=== PATIENT | female | born 1970 | race African-American/Black ===

== ENCOUNTER 2016-10-08 08:48 | Emergency (ER) | payer OTHER ==
[~2016-10-08] VITALS: Ht 152.4 cm; Wt 80.8 kg
[~2016-10-08 08:48] MED LIST: ADVAIR 250/501 DISK IH; ALBUTEROL17 GM IH; ANIMAL CHEWS1 EACH PO; ATENOLOL50 M1 PO; BACLOFEN10 MG PO; BENADRYL ALLERG25 MG PO; BENTYL20 MG PO; CLARITIN,ALAVAR10 MG PO; DIABETA,MICRO1.25 MG PO; DIABETA1.25 MG PO; DILAUDID2 MG PO; FLEXERIL10 MG PO; FLOMAX0.4 MG PO; GLYBURIDE2.5 MG PO; LEVAQUIN750 MG PO; LORTAB 5-325 M1 EACH PO; MACRODANTIN50 M1 PO; METFORMIN HCL1000 MG PO; METFORMIN HCL500 MG PO; METOCLOPRAMIDE10 MG PO; MILK OF MAGN PO; MULTIVITAMIN1 EAC1 PO; MULTIVITAMIN1 EAC2 PO; NORCO 5/3251 TABLET PO; OMEGA III EPA1000 MG PO; OMEPRAZOLE20 MG PO; OXYCODONE HCL5 MG PO; POTASSIUM PO; PREDNISONE10 MG PO; PROMETHAZINE HC25 M1 PO; ROBITUSSIN AC,T10 ML PO; ROXICODONE5 MG PO; SINUS PRESSURE-10 MG PO; TRAMADOL HCL50 MG PO; TYLENOL WITH C1 EACH PO; ULTRAM50 MG PO; VENTOLIN HFA18 GM PO; VITAMIN D1000 INTUN PO; ZOFRAN ODT4 MG PO; ZOFRAN4 MG PO
[2016-10-08 09:33] LABS: HEMATOCRIT 44.6 % (36.0-46.0); MCH 30.6 PG (29.0-34.0); MCHC 33.2 G/DL (30.0-36.0); MCV 92.1 FL (83-99); MEAN PLAT.VOLUME 11.1 uM^3 (9.5-12.4); PLATELET COUNT 187 K/uL (156-360); RBC DIS.WIDTH-CV 11.9 % (11.8-14.6); RBC DIS.WIDTH-SD 40.2 % (39-53); RED BLOOD COUNT 4.84 M/uL (3.80-5.20); WHITE BLOOD COUNT 14.8 K/uL (4.1-10.2)
[2016-10-08 09:46] LABS: CHLORIDE 103 mEq/L (99-109); POTASSIUM 3.9 mEq/L (3.7-5.4); SODIUM 136 mEq/L (136-147)
[2016-10-08 09:48] LABS: GLUCOSE 233 mg/dL (70-99)
[2016-10-08 09:50] LABS: ANION GAP 10 MEQ/L (2-14); TOTAL BILIRUBIN 0.6 mg/dL (0.0-1.0)
[2016-10-08 09:52] LABS: ALKALINE PHOSPHATASE 87 IU/L (3-129); GFR ESTIMATE (CALCULATED) > 59 mL/min/
[2016-10-08 09:53] LABS: UREA NITROGEN (BUN) 10 mg/dL (9-23)
[2016-10-08 09:56] LABS: LIPASE 45 U/L (1.0-51.0)
[2016-10-08 10:02] LABS: QUANTITATIVE HCG < 4.0 MIU/ML
[2016-10-08] MEDS ORDERED: DIABETA2.5 MG PO (10:30)
[2016-10-08 11:14] LABS: ADD MIUA? YES; BILIRUBIN NEGATIVE; BLOOD NEGATIVE; COLOR YELLOW ((YELLOW)); GLUCOSE (STRIP) NEGATIVE; KETONES NEGATIVE; LEUKOCYTES NEGATIVE; NITRITE NEGATIVE; PROTEIN (STRIP) NEGATIVE; UROBILINOGEN 0.2 MG/DL (0.2-1.0)
[2016-10-08 11:24] LABS: BACTERIA RARE /HPF; EPITHELIAL CELLS RARE /HPF; MUCUS TRACE /LPF; RED BLOOD CELLS 0-5 /HPF (0-5); UCUL ADDED? NO; WHITE BLOOD CELLS 0-5 /HPF (0-5)
[2016-10-08] MEDS ORDERED: ZOFRAN ODT4 MG PO (11:30)
[2016-10-08] MEDS ORDERED: BENTYL10 MG PO (11:30)
[2016-10-08 11:39] LABS: SPECIFIC GRAVITY 1.054 (1.000-1.030)
[2016-10-08 11:44] VITALS: BP 137/65
== END 2016-10-08 11:46 | disposition home or self-care (01) ==
LOC: EME 08:48
DX: A08.4 Viral intestinal infection, unspecified (principal); R10.2 Pelvic and perineal pain; J45.909 Unspecified asthma, uncomplicated; E11.9 Type 2 diabetes mellitus without complications; Q61.5 Medullary cystic kidney; K76.0 Fatty (change of) liver, not elsewhere classified; Z87.442 Personal history of urinary calculi; Z79.84 Long term (current) use of oral hypoglycemic drugs; F17.200 Nicotine dependence, unspecified, uncomplicated; Z88.0 Allergy status to penicillin
CPT/HCPCS: 74177; 80053; 81003; 83690; 84702; 85027; 99281; 99285; J1885; J2405; J3010; J7030

== ENCOUNTER 2016-10-20 12:18 | Inpatient (IN) | payer OTHER ==
[~2016-10-20] VITALS: Ht 157.5 cm; Wt 81.9 kg
[~2016-10-20 12:18] MED LIST changes: -ATENOLOL50 M1 PO; +ATENOLOL50 MG PO; +BENTYL10 MG PO; +DIABETA2.5 MG PO
[2016-10-20 13:11] LABS: MCH 30.5 PG (29.0-34.0); MCHC 32.7 G/DL (30.0-36.0); MCV 93.4 FL (83-99); MEAN PLAT.VOLUME 10.5 uM^3 (9.5-12.4); PLATELET COUNT 236 K/uL (156-360); RBC DIS.WIDTH-SD 41.2 % (39-53); RED BLOOD COUNT 4.82 M/uL (3.80-5.20); WHITE BLOOD COUNT 13.5 K/uL (4.1-10.2)
[2016-10-20 13:24] LABS: CHLORIDE 103 mEq/L (99-109); POTASSIUM 4.5 mEq/L (3.7-5.4); SODIUM 138 mEq/L (136-147)
[2016-10-20 13:27] LABS: GLUCOSE 196 mg/dL (70-99)
[2016-10-20 13:28] LABS: ANION GAP 12 MEQ/L (2-14)
[2016-10-20 13:29] LABS: TOTAL BILIRUBIN 0.3 mg/dL (0.0-1.0)
[2016-10-20 13:30] LABS: ALKALINE PHOSPHATASE 78 IU/L (3-129); GFR ESTIMATE (CALCULATED) > 59 mL/min/
[2016-10-20 13:31] LABS: UREA NITROGEN (BUN) 8 mg/dL (9-23)
[2016-10-20 13:39] LABS: QUANTITATIVE HCG < 4.0 MIU/ML
[2016-10-20 13:59] LABS: AMYLASE 117 IU/L (1-118)
[2016-10-20 14:08] LABS: LIPASE 218 U/L (1.0-51.0)
[2016-10-20 15:30] LABS: ADD MIUA? YES; BILIRUBIN NEGATIVE; BLOOD NEGATIVE; COLOR YELLOW ((YELLOW)); GLUCOSE (STRIP) NEGATIVE; KETONES NEGATIVE; LEUKOCYTES SMALL; NITRITE NEGATIVE; PROTEIN (STRIP) 30; SPECIFIC GRAVITY 1.024 (1.000-1.030); UROBILINOGEN 0.2 MG/DL (0.2-1.0)
[2016-10-20 15:40] LABS: BACTERIA RARE /HPF; EPITHELIAL CELLS 1+ /HPF; MUCUS 3+ /LPF; UCUL ADDED? YES; URIC ACID CRYSTALS 2+ /HPF
[2016-10-20 16:50] VITALS: BP 131/67
[2016-10-20] MEDS ORDERED: VITAMIN D2000 UNI1 PO (17:46)
[2016-10-20] MEDS ORDERED: FLAGYL500 MG PO (17:48)
[2016-10-20 19:00] VITALS: BP 119/67
[2016-10-21] VITALS: BP 149/73
[2016-10-21 03:16] LABS: ADD MIUA? YES; BILIRUBIN NEGATIVE; BLOOD NEGATIVE; COLOR YELLOW ((YELLOW)); GLUCOSE (STRIP) NEGATIVE; KETONES 5; LEUKOCYTES SMALL; NITRITE NEGATIVE; PROTEIN (STRIP) NEGATIVE; SPECIFIC GRAVITY 1.043 (1.000-1.030); UROBILINOGEN 0.2 MG/DL (0.2-1.0)
[2016-10-21 03:38] LABS: BACTERIA RARE /HPF; EPITHELIAL CELLS 1+ /HPF; MUCUS TRACE /LPF; RED BLOOD CELLS 0-5 /HPF (0-5); UCUL ADDED? NO; WHITE BLOOD CELLS 0-5 /HPF (0-5)
[2016-10-21 06:01] LABS: HEMATOCRIT 41.4 % (36.0-46.0); MCH 29.9 PG (29.0-34.0); MCHC 31.9 G/DL (30.0-36.0); MCV 93.7 FL (83-99); MEAN PLAT.VOLUME 10.7 uM^3 (9.5-12.4); PLATELET COUNT 188 K/uL (156-360); RBC DIS.WIDTH-CV 11.9 % (11.8-14.6); RBC DIS.WIDTH-SD 41.7 % (39-53); RED BLOOD COUNT 4.42 M/uL (3.80-5.20); WHITE BLOOD COUNT 6.5 K/uL (4.1-10.2)
[2016-10-21 06:23] LABS: ALKALINE PHOSPHATASE 60 IU/L (3-129); ANION GAP 7 MEQ/L (2-14); CHLORIDE 106 MEQ/L (99-109); GFR ESTIMATE (CALCULATED) > 59 mL/min/; GLUCOSE 121 mg/dL (70-99); POTASSIUM 3.9 MEQ/L (3.7-5.4); SAMPLE HEMOLYSIS CHECK 0; SAMPLE ICTERIC CHECK 0; SAMPLE LIPEMIA CHECK 0; SODIUM 138 MEQ/L (136-147); TOTAL BILIRUBIN 0.3 MG/DL (0.0-1.0); UREA NITROGEN (BUN) 6 mg/dL (9-23)
[2016-10-21 06:43] LABS: POINT-OF-CARE METER ID UU13113831
[2016-10-21 08:16] VITALS: BP 133/61
[2016-10-21] MEDS ORDERED: POTASSIUM-9999 MG PO (11:42)
[2016-10-21] MEDS ORDERED: PROMETHAZINE HC25 M1 PO (11:43)
[2016-10-21] MEDS ORDERED: DELTA D3400 UNIT PO (11:44)
[2016-10-21] MEDS ORDERED: ANTI-ITCH28.4 GM TP (11:45)
[2016-10-21] MEDS ORDERED: ZYRTEC10 M3 PO (11:47)
[2016-10-21] MEDS ORDERED: PROAIR HFA8.5 GM IH (11:47)
[2016-10-21 12:43] LABS: POINT-OF-CARE METER ID UU14162513
[2016-10-21 16:29] VITALS: BP 133/66
[2016-10-21 20:20] LABS: POINT-OF-CARE METER ID UU13113675
[2016-10-22] VITALS: BP 140/73
[2016-10-22 04:00] VITALS: BP 133/77
[2016-10-22 06:55] LABS: POINT-OF-CARE METER ID UU13113831
[2016-10-22 08:15] VITALS: BP 139/73
[2016-10-22 11:15] VITALS: BP 138/65
[2016-10-22 12:09] LABS: POINT-OF-CARE METER ID UU13113700
[2016-10-22 15:23] VITALS: BP 159/98
[2016-10-22 16:24] LABS: INTERNAL CONTROL VALID? YES
[2016-10-22 16:54] LABS: C DIFF TOXIN NEGATIVE (NEGATIVE)
[2016-10-22 17:01] LABS: PROBE CHECK PASS; SPECIMEN PROCESSING CONTROL PASS
[2016-10-22 19:37] LABS: INTERNAL CONTROL VALID? YES
[2016-10-22 20:00] VITALS: BP 137/77
[2016-10-23 00:14] VITALS: BP 136/66
[2016-10-23 03:54] VITALS: BP 136/67
[2016-10-23 08:45] VITALS: BP 145/71
[2016-10-23 11:40] VITALS: BP 138/64
[2016-10-23 12:16] LABS: POINT-OF-CARE METER ID UU14162513
[2016-10-23 19:30] VITALS: BP 125/75
[2016-10-23 19:41] LABS: POINT-OF-CARE METER ID UU13113700
[2016-10-23 21:36] LABS: POINT-OF-CARE METER ID UU13113700
[2016-10-24 00:47] VITALS: BP 160/80
[2016-10-24 04:30] VITALS: BP 127/86
[2016-10-24 06:11] LABS: POINT-OF-CARE METER ID UU13113831
[2016-10-24 07:51] LABS: C-REACTIVE PROTEIN 1.4 MG/L (0-10)
[2016-10-24 09:00] VITALS: BP 141/77
[2016-10-24 11:27] VITALS: BP 140/88
[2016-10-24] MEDS ORDERED: SUCRALFATE1 GM PO (14:20)
[2016-10-24 15:58] VITALS: BP 124/73
== END 2016-10-24 16:50 | disposition home or self-care (01) | DRG 392 ==
LOC: EME 12:18 → EDOF 15:15 → 5WEST 15:15 → ENRESERV 15:17 → 5WEST 16:43 → ENRESERV 10-21 14:42 → CANRESERV 10-24 13:14 → ENRESERV 10-24 13:14 → 5WEST 10-24 16:50
PROVIDERS: Hospitalist; Internal Medicine; Nurse Practitioner Family
PROC: 0DB68ZX Excision of Stomach, Via Natural or Artificial Opening Endoscopic, Diagnostic (ICD-10-PCS; principal; 2016-10-21)
DX: K29.70 Gastritis, unspecified, without bleeding (principal); Q61.5 Medullary cystic kidney; I10 Essential (primary) hypertension; E11.9 Type 2 diabetes mellitus without complications; K57.90 Diverticulosis of intestine, part unspecified, without perforation or abscess without bleeding; K92.1 Melena; Z79.84 Long term (current) use of oral hypoglycemic drugs; Z87.442 Personal history of urinary calculi; R63.0 Anorexia; Z83.3 Family history of diabetes mellitus; Z82.49 Family history of ischemic heart disease and other diseases of the circulatory system; Z86.19 Personal history of other infectious and parasitic diseases; Z68.33 Body mass index [BMI] 33.0-33.9, adult; K64.8 Other hemorrhoids; G89.29 Other chronic pain; F17.200 Nicotine dependence, unspecified, uncomplicated; J45.909 Unspecified asthma, uncomplicated; R51 Headache; R74.8 Abnormal levels of other serum enzymes
CPT/HCPCS: 74177; 80053; 81003; 82150; 82272; 82948; 83630; 83690; 84702; 85027; 86140; 87086; 87177; 87206; 87329; 87493; 87506; 88305; 88342 TC; 94660; 99281; 99285; G0378; J1170; J1815; J2405; J3010; J7030; S0028; S0030

== ENCOUNTER 2016-10-30 15:27 | Emergency (ER) | payer OTHER ==
[~2016-10-30] VITALS: Ht 154.9 cm; Wt 81.6 kg
[~2016-10-30 15:27] MED LIST changes: +ANTI-ITCH28.4 GM TP; +DELTA D3400 UNIT PO; +FLAGYL500 MG PO; +POTASSIUM-9999 MG PO; +PROAIR HFA8.5 GM IH; +SUCRALFATE1 GM PO; +VITAMIN D2000 UNI1 PO; +ZYRTEC10 M3 PO
[2016-10-30 16:31] LABS: HEMATOCRIT 43.3 % (36.0-46.0); MCH 30.3 PG (29.0-34.0); MCHC 32.8 G/DL (30.0-36.0); MCV 92.3 FL (83-99); MEAN PLAT.VOLUME 11.1 uM^3 (9.5-12.4); PLATELET COUNT 171 K/uL (156-360); RBC DIS.WIDTH-CV 12.3 % (11.8-14.6); RBC DIS.WIDTH-SD 41.7 % (39-53); RED BLOOD COUNT 4.69 M/uL (3.80-5.20); WHITE BLOOD COUNT 9.2 K/uL (4.1-10.2)
[2016-10-30 16:40] LABS: CHLORIDE 105 mEq/L (99-109); POTASSIUM 4.1 mEq/L (3.7-5.4); SODIUM 139 mEq/L (136-147)
[2016-10-30 16:42] LABS: GLUCOSE 104 mg/dL (70-99)
[2016-10-30 16:43] LABS: ANION GAP 10 MEQ/L (2-14)
[2016-10-30 16:46] LABS: GFR ESTIMATE (CALCULATED) > 59 mL/min/
[2016-10-30 16:47] LABS: UREA NITROGEN (BUN) 9 mg/dL (9-23)
[2016-10-30 19:28] LABS: LIPASE 100 U/L (1.0-51.0)
[2016-10-30 22:09] VITALS: BP 159/93
== END 2016-10-30 22:09 | disposition home or self-care (01) ==
LOC: EME 15:27
DX: K29.70 Gastritis, unspecified, without bleeding (principal); E11.9 Type 2 diabetes mellitus without complications; J45.909 Unspecified asthma, uncomplicated; Z87.442 Personal history of urinary calculi; Q61.5 Medullary cystic kidney; Z79.84 Long term (current) use of oral hypoglycemic drugs; F17.200 Nicotine dependence, unspecified, uncomplicated
CPT/HCPCS: 74177; 80048; 83690; 85027; 86850; 86900; 86901; 99281; 99285

== ENCOUNTER → 2017-01-20 | Outpatient (CLI) | payer OTHER ==
[~2017-01-20] VITALS: Ht 151.1 cm; Wt 76.7 kg
[2017-01-20 10:15] LABS: POINT-OF-CARE METER ID UU14107333
== END | disposition home or self-care (01) ==
LOC: AMB 09:29
PROVIDERS: Internal Medicine
PROC: 0DBP8ZX Excision of Rectum, Via Natural or Artificial Opening Endoscopic, Diagnostic (ICD-10-PCS; principal; 2017-01-20)
DX: D12.8 Benign neoplasm of rectum (principal); K64.8 Other hemorrhoids; K57.30 Diverticulosis of large intestine without perforation or abscess without bleeding; I25.2 Old myocardial infarction; E11.9 Type 2 diabetes mellitus without complications; Z79.84 Long term (current) use of oral hypoglycemic drugs; Z88.0 Allergy status to penicillin; Z86.718 Personal history of other venous thrombosis and embolism; F17.200 Nicotine dependence, unspecified, uncomplicated
CPT/HCPCS: 82948; 88305; 93005; J2250

== ENCOUNTER 2017-02-27 10:59 | Emergency (ER) | payer OTHER ==
[~2017-02-27] VITALS: Ht 152.4 cm; Wt 80.2 kg
[2017-02-27 11:07] VITALS: BP 149/107
== END 2017-02-27 13:42 | disposition left against medical advice (07) ==
LOC: EME 10:59
DX: M54.9 Dorsalgia, unspecified (principal); W10.9XXA Fall (on) (from) unspecified stairs and steps, initial encounter; Z53.21 Procedure and treatment not carried out due to patient leaving prior to being seen by health care provider
CPT/HCPCS: 99281

== ENCOUNTER 2017-07-15 14:00 | Emergency (ER) | payer OTHER ==
[~2017-07-15] VITALS: Ht 152.4 cm; Wt 78.5 kg
[2017-07-15 14:48] LABS: BASOPHIL (%) 0.3 % (0-1); EOSINOPHIL (%) 2.2 % (0-5); EOSINOPHIL COUNT 0.2 K/uL (0-0.3); HEMATOCRIT 42.7 % (36.0-46.0); HEMOGLOBIN 14.3 G/DL (11.9-15.5); IMMATURE GRANULOCYTE (%) 0.4 % (0.0-0.7); LYMPHOCYTE (%) 26.1 % (15-42); MCH 30.7 PG (29.0-34.0); MCHC 33.5 G/DL (30.0-36.0); MCV 91.6 FL (83-99); MONOCYTE (%) 7.2 % (3-12); MONOCYTE COUNT 0.6 K/uL (0-0.8); NEUTROPHIL (%) 63.8 % (45-76); PLATELET COUNT 181 K/uL (156-360); RBC DIS.WIDTH-CV 12.5 % (11.8-14.6); RBC DIS.WIDTH-SD 41.5 % (39-53); RED BLOOD COUNT 4.66 M/uL (3.80-5.20); WHITE BLOOD COUNT 7.8 K/uL (4.1-10.2)
[2017-07-15 14:53] LABS: INTER. NORMALIZED RATIO 1.1
[2017-07-15 14:56] LABS: CHLORIDE 105 mEq/L (99-109); SODIUM 138 mEq/L (136-147)
[2017-07-15 14:58] LABS: GLUCOSE 157 mg/dL (70-99)
[2017-07-15 15:02] LABS: CREATININE 0.7 mg/dL (0.6-1.3); GFR ESTIMATE (CALCULATED) > 59 mL/min/; UREA NITROGEN (BUN) 9 mg/dL (9-23)
[2017-07-15 15:08] LABS: TROP-I INTERPRETATION NEGATIVE; TROPONIN-I < 0.01 ng/mL (0.0-0.30)
[2017-07-15] MEDS ORDERED: ZOFRAN4 MG PO (15:48)
[2017-07-15 17:19] LABS: TROP-I INTERPRETATION NEGATIVE; TROPONIN-I < 0.01 ng/mL (0.0-0.30)
[2017-07-15] MEDS ORDERED: ULTRAM50 MG PO (20:03)
[2017-07-15 20:30] VITALS: BP 113/65
== END 2017-07-15 20:37 | disposition home or self-care (01) ==
LOC: EME 14:00
PROVIDERS: Emergency Medicine
DX: R07.9 Chest pain, unspecified (principal); R06.00 Dyspnea, unspecified; M54.6 Pain in thoracic spine; R51 Headache; F17.200 Nicotine dependence, unspecified, uncomplicated; Z86.711 Personal history of pulmonary embolism; I25.2 Old myocardial infarction; J45.909 Unspecified asthma, uncomplicated; E11.9 Type 2 diabetes mellitus without complications; Z79.84 Long term (current) use of oral hypoglycemic drugs; Z86.73 Personal history of transient ischemic attack (TIA), and cerebral infarction without residual deficits; R79.1 Abnormal coagulation profile
CPT/HCPCS: 71045; 71275; 80048; 84484; 85025; 85379; 85610; 85730; 93005; 99281; 99285; J1200; J2765; J3010; J7040

== ENCOUNTER 2017-08-12 15:40 | Emergency (ER) | payer OTHER ==
[~2017-08-12] VITALS: Ht 152.4 cm; Wt 78.0 kg
[2017-08-12 16:52] LABS: APPEARANCE CLEAR ((CLEAR)); BILIRUBIN NEGATIVE; BLOOD NEGATIVE; COLOR YELLOW ((YELLOW)); GLUCOSE (STRIP) NEGATIVE; KETONES NEGATIVE; LEUKOCYTES NEGATIVE; NITRITE NEGATIVE; PROTEIN (STRIP) NEGATIVE; SPECIFIC GRAVITY 1.015 (1.000-1.030); UROBILINOGEN 0.2 MG/DL (0.2-1.0)
[2017-08-12 16:53] LABS: HEMATOCRIT 42.4 % (36.0-46.0); HEMOGLOBIN 14.3 G/DL (11.9-15.5); MCH 30.9 PG (29.0-34.0); MCHC 33.7 G/DL (30.0-36.0); MCV 91.6 FL (83-99); PLATELET COUNT 187 K/uL (156-360); RBC DIS.WIDTH-CV 12.3 % (11.8-14.6); RED BLOOD COUNT 4.63 M/uL (3.80-5.20); WHITE BLOOD COUNT 6.8 K/uL (4.1-10.2)
[2017-08-12 17:05] LABS: ALBUMIN 4.5 g/dL (3.2-4.8)
[2017-08-12 17:06] LABS: CHLORIDE 103 mEq/L (99-109); SODIUM 139 mEq/L (136-147)
[2017-08-12 17:08] LABS: GLUCOSE 107 mg/dL (70-99)
[2017-08-12 17:10] LABS: TOTAL BILIRUBIN 0.4 mg/dL (0.0-1.0)
[2017-08-12 17:11] LABS: ALKALINE PHOSPHATASE 70 IU/L (3-129)
[2017-08-12 17:12] LABS: CREATININE 0.7 mg/dL (0.6-1.3); GFR ESTIMATE (CALCULATED) > 59 mL/min/
[2017-08-12 17:13] LABS: AST (GOT) 14 IU/L (2-34); UREA NITROGEN (BUN) 8 mg/dL (9-23)
[2017-08-12 17:15] LABS: ALT (GPT) 12 IU/L (3-49)
[2017-08-12] MEDS ORDERED: ZOFRAN ODT4 MG PO (18:12)
[2017-08-12] MEDS ORDERED: BENTYL10 MG PO (18:12)
[2017-08-12 18:19] VITALS: BP 141/91
== END 2017-08-12 18:20 | disposition home or self-care (01) ==
LOC: EME 15:40
PROVIDERS: Nurse Practitioner Family
DX: B34.9 Viral infection, unspecified (principal); R10.2 Pelvic and perineal pain; Z87.442 Personal history of urinary calculi; I25.2 Old myocardial infarction; Q61.5 Medullary cystic kidney; Z86.73 Personal history of transient ischemic attack (TIA), and cerebral infarction without residual deficits; J45.909 Unspecified asthma, uncomplicated; E11.9 Type 2 diabetes mellitus without complications; Z79.84 Long term (current) use of oral hypoglycemic drugs; F17.200 Nicotine dependence, unspecified, uncomplicated; Z88.6 Allergy status to analgesic agent; Z88.5 Allergy status to narcotic agent; Z88.0 Allergy status to penicillin
CPT/HCPCS: 74176; 80053; 81003; 85027; 99281; 99285; J1885; J2405; J7030